=== PATIENT | female | born 1995 | race American Indian/Alaskan Native ===

== ENCOUNTER 2019-09-25 10:29 | Outpatient (CLI) | payer MEDICAID ==
[2019-09-25] MEDS ORDERED: BUTORPHANOL 2 MG/1 ML INJ IV PRN (12:00)
[2019-09-25 12:30] LABS: Hematocrit 24.6 % (30.3-42.9); Hemoglobin 7.6 gm/dl (10.1-14.3); Mean Corpuscular HGB Conc 31 % (30-34); Platelet Count 328 K/mm3 (140-440); Red Blood Count 3.82 M/mm3 (3.65-5.03); Red Cell Distribution Width 19.6 % (13.2-15.2)
[2019-09-25 12:35] VITALS: BP 138/87
[2019-09-25 12:35] LABS: Mean Corpuscular Volume 65 fl (79-97)
[2019-09-25 12:47] LABS: Uric Acid 5.6 mg/dL (3.5-7.6)
[2019-09-25 12:48] LABS: Alanine Aminotransferase < 5 units/L (7-56)
[2019-09-25] MEDS ORDERED: FLUCONAZOLE 100 MG TAB PO SCH (13:00)
--- NOTE | 2019-09-25 13:10 | Event Note ---
Date: 09/25/19 CHTN, noncompliant with care 36+6/7 weeks today complains of COVINGTON and insomnia had PIH w/up earlier this week Went to [facility] today, everything WNL but told to come to ED for COVINGTON, BV BP at baseline in OB triage plan for diflucan, IV stadol, PE/Labor/FM precautions reviewed patient AAOx3 at [facility], no focal neuro deficits and stable for discharge. EFM category 1 Dre Bob MD
== END 2019-09-25 14:08 | disposition home or self-care (01) ==
LOC: TRG 10:29 → APU 10:31 → TRG 14:08
PROVIDERS: ATTEND Obstetrics & Gynecology
DX: O10.913 Unspecified pre-existing hypertension complicating pregnancy, third trimester (principal); O99.343 Other mental disorders complicating pregnancy, third trimester; F32.9 Major depressive disorder, single episode, unspecified; O99.353 Diseases of the nervous system complicating pregnancy, third trimester; G47.00 Insomnia, unspecified; O99.323 Drug use complicating pregnancy, third trimester; F12.90 Cannabis use, unspecified, uncomplicated; Z87.891 Personal history of nicotine dependence; Z3A.36 36 weeks gestation of pregnancy
CPT/HCPCS: 36415; 59025; 82565; 83615; 84450; 84460; 84550; 85027; 96374; J0595

== ENCOUNTER 2019-10-03 14:56 | Inpatient (IN) | payer MEDICAID ==
[2019-10-03] MEDS ORDERED: FAMOTIDINE 20 MG/2 ML INJ IV ONE (15:43)
[2019-10-03] MEDS ORDERED: METOCLOPRAMIDE 10 MG/2 ML INJ IV ONE (15:43)
[2019-10-03] MEDS ORDERED: BICITRA ORAL LIQD 30ML PO ONE (15:43)
[2019-10-03] MEDS ORDERED: ceFAZolin/Water 2 GM/20 ML 2 GM/20 ML SYRINGE IV NR (16:00)
[2019-10-03] MEDS ORDERED: OXYTOCIN 20 UNIT/1000ML DRIP 20 UNITS/1,000 ML BAG IV SCH ×2 (16:00→19:00)
--- NOTE | 2019-10-03 16:01 | History and Physical Report ---
History of Present Illness Date of examination: 10/03/19 Date of admission: 10/03/19 14:56 History of present illness: 24 yo at 38 weeks today has a h/o prior C/S and CHTN. No HTN meds needed during the preg. PT sent from [facility] today due to elevated BPs in the office and recommended delivery today. Fetus also with a 2 BV cord. No preeclamptic sxs. Normal preeclamptic labs 7 days ago. Positive Marijuana on tox screen on 09/21. Pt also with PICA during the (corn starch) as well as tobacco use earlier in the preg. Past History Past Medical History: asthma, hypertension, other (HSV, Bipolar/depression, anemia) Past Surgical History: section Social history: smoking (and marijuana use) - Obstetrical History : 4 Para: 3 Hx # Term Pregnancies: 1 Number of Living Children: 1 Medications and Allergies Allergies Allergy/AdvReac Type Severity Reaction Status Date / Time Penicillins AdvReac Severe Vomiting Verified 09/26/19 17:47 Home Medications Medication Instructions Recorded Confirmed Last Taken Type Vit 90/Iron Fum/Folic 1 each PO QDAY 10/17/13 09/22/19 09/21/19 10:00 History [ Formula] 1 tab Promethazine [Phenergan] 25 mg PO Q6H PRN #12 tablet 10/17/13 09/22/19 Unknown Rx Active Meds: Active Medications Oxytocin/Sodium Chloride (Pitocin/Ns 20 Unit/1000ml Drip) 20 units in 1,000 mls @ 0 mls/hr IV TITR NAFISA Lactated Ringer's (Lactated Ringers) 1,000 mls @ 2,250 mls/hr IV PREOP NAFISA Stop: 10/04/19 16:27 Cefazolin Sodium (Ancef/Sterile Water 2 Gm/20 Ml) 2 gm in 20 mls @ 80 mls/hr IV PREOP NR; Protocol Stop: 10/03/19 23:59 Review of Systems All systems: negative (except HPI) - Vital Signs Vital signs: Vital Signs Pulse Pulse Ox 94 H 100 10/03/19 15:36 10/03/19 15:36 Temp Pulse Resp BP Pulse Ox 98 H 132/89 100 10/03/19 15:56 10/03/19 15:48 10/03/19 15:56 - Obstetrical FHR: category 1 Results All other labs normal. Assessment and Plan - Patient Problems (1) Chronic hypertension affecting Current Visit: Yes Status: Acute Plan to address problem: Pt is at 38 weeks with CHTN who was sent by [facility] for delivery today for CHTN, possibly superimposed preeclampsia. Will start MgSO4 and repeat CMP/CBC. Will proceed with RLTCS today. Patient fully consented for the surgery. Risks, benefits, and alternatives were all discussed with the patient including risk of bleeding, infection, and potential for injury. Patient understands and accepts these risks. Patient agrees to proceed with surgery. All questions were answered. (2) Previous delivery, antepartum Current Visit: Yes Status: Acute
[2019-10-03] MEDS ORDERED: DEXMEDETOMIDINE 200 MCG/2 ML VIAL IV ONE (16:03)
[2019-10-03] MEDS ORDERED: ONDANSETRON 4 MG/2 ML INJ ONE (16:03)
[2019-10-03] MEDS ORDERED: MAGNESIUM SULFATE 4 GM/100 ML BAG IV ONE (16:18)
--- NOTE | 2019-10-03 16:19 | Anesthesia Day of Surgery ---
Anesthesia Day of Surgery - Day of Surgery Patient Examined: Yes Patient H&P Reviewed: Yes Patient is NPO: Yes Beta Blockers: No (stop taken B/P meds ) Cardiac Clearance: No Pulmonary Clearance: No Pato's Test: N/A
--- NOTE | 2019-10-03 16:21 | Anesthesia Consultation ---
Anesthesia Consult and Med Hx Date of service: 10/03/19 - Airway Anesthetic Teeth Evaluation: Good, Poor ROM Head & Neck: Adequate Mental/Hyoid Distance: Adequate Mallampati Class: Class III Intubation Access Assessment: Probably Good - Pulmonary Exam CTA: Yes - Cardiac Exam Cardiac Exam: RRR - Pre-Operative Health Status ASA Pre-Surgery Classification: ASA3 Proposed Anesthetic Plan: Spinal - Pulmonary Hx Smoking: No Hx Asthma: Yes (INHALER 2 MTHS AGO) Hx Respiratory Symptoms: No SOB: No COPD: No Home Oxygen Therapy: No Hx Pneumonia: No Hx Sleep Apnea: No - Cardiovascular System Hx Hypertension: Yes Hx Coronary Artery Disease: No Hx Heart Attack/AMI: No Hx Angina: No Hx Percutaneous Transluminal Coronary Angioplasty (PTCA): No Hx Cardia Arrhythmia: No Hx Pacemaker: No Hx Internal Defibrillator: No Hx Valvular Heart Disease: No Hx Heart Murmur: No Hx Peripheral Vascular Disease: No - Central Nervous System Hx Neuromuscular Disorder: No Hx Seizures: No CVA: No Hx Back Pain: No Hx Psychiatric Problems: Yes (ANXIETY, PPSD, BIPOLAR DEPRESSION) - Gastrointestinal Hx Ulcer: No Hx Gastroesophageal Reflux Disease: Yes - Endocrine Hx Renal Disease: No Hx End Stage Renal Disease: No Hx Cirrhosis: No Hx Liver Disease: No Hx Insulin Dependent Diabetes: No Hx Non-Insulin Dependent Diabetes: No Hx Thyroid Disease: No Hx Hypothyroidism: No Hx Hyperthyroidism: No - Hematic Hx Anemia: No Hx Sickle Cell Disease: No - Other Systems Hx Alcohol Use: No Hx Substance Use: Yes (cannabis) Hx Cancer: No Hx Obesity: Yes
[2019-10-03 16:27] LABS: Basophils # (Auto) 0.1 K/mm3 (0.0-0.1); Basophils % (Auto) 0.4 % (0.0-1.8); Eosinophils # (Auto) 0.1 K/mm3 (0.0-0.4); Eosinophils % (Auto) 0.5 % (0.0-4.3); Hematocrit 25.6 % (30.3-42.9); Hemoglobin 7.6 gm/dl (10.1-14.3); Lymphocytes # (Auto) 3.6 K/mm3 (1.2-5.4); Lymphocytes % (Auto) 22.9 % (13.4-35.0); Mean Corpuscular HGB Conc 30 % (30-34); Monocytes # (Auto) 1.5 K/mm3 (0.0-0.8); Monocytes % (Auto) 9.5 % (0.0-7.3); Platelet Count 358 K/mm3 (140-440); Red Blood Count 4.04 M/mm3 (3.65-5.03); Red Cell Distribution Width 19.6 % (13.2-15.2)
[2019-10-03 16:28] LABS: Mean Corpuscular Volume 63 fl (79-97)
[2019-10-03] MEDS: LACTATED RINGERS 1,000 ML IV SCH (16:37)
[2019-10-03 16:52] LABS: Alanine Aminotransferase 7 units/L (7-56); Albumin 3.6 g/dL (3.9-5); BUN/Creatinine Ratio 7; Blood Urea Nitrogen 5 mg/dL (7-17); Calcium 9.2 mg/dL (8.4-10.2); Hemolysis Index 1
[2019-10-03] MEDS ORDERED: NALOXONE 0.4 MG/1 ML INJ IV PRN ×2 (17:05→18:54)
[2019-10-03] MEDS ORDERED: ONDANSETRON 4 MG/2 ML INJ IV PRN ×2 (17:05→18:57)
[2019-10-03] MEDS ORDERED: PHENYLEPHRINE/NS 1,000 MCG/10 ML SYRINGE (OR USE) IV ONE (18:03)
[2019-10-03] MEDS ORDERED: SODIUM CHLORIDE 0.9% IRR 1,500 ML BOTTLE IR ONE (18:05)
[2019-10-03] MEDS ORDERED: WATER FOR IRRIG STERILE 1,500 ML BOTTLE IR ONE (18:05)
[2019-10-03] MEDS ORDERED: WITCH HAZEL/ GLYCERIN PAD TP PRN (18:54)
[2019-10-03] MEDS ORDERED: LANOLIN/ZINC/DIMETHICONE (LANSINOH) 7 GM TP PRN (18:54)
[2019-10-03] MEDS ORDERED: SENNOSIDES 8.6 MG TAB PO PRN (18:57)
[2019-10-03] MEDS ORDERED: MAGNESIUM HYDROXIDE (MOM) ORAL LIQD UDC PO PRN (18:57)
--- NOTE | 2019-10-03 19:03 | Procedure Note ---
OB Delivery Note - Delivery Date of Delivery: 10/03/19 Surgeon: PIERCE ROMERO Estimated blood loss: other (700cc) - Section Preop diagnosis: repeat , other (CHTN, possible superimposed preeclampsia) Postop diagnosis: same section procedure: section, repeat low transverse Disposition: PACU Complications: none Narrative: Indication: 24 yo at 38 weeks for RLTCS for CHTN, possible superimposed preeclampsia Findings: Normal uterus, tubes and ovaries. Clear fluid. No nuchal cord. No significant intra-abdominal scarring. Procedure: Patient taken to the operating room and prepped and draped in the usual fashion. Pfannenstiel skin incision made after her old keloid scar was excised and incision was and carried down to the underlying fascia. Fascia was incised and the incision was extended bilaterally. Rectus fascia dissected off the rectus muscle both superiorly and inferiorly. Peritoneum identified tented up and entered. Peritoneal incision extended superiorly and inferiorly with good visualization of the bladder. Bladder blade was placed. Uterine incision was made and the incision was extended bilaterally. The baby was delivered from in the typical vertex fashion. Baby bulb suctioned at the incision site and again after delivery. Cord was delayed clamped and cut and handed off to waiting team. The placenta was delivered spontaneously. The uterus was exteriorized and cleared of all clots and debris. Uterine incision closed with 0 Vicryl in a running locked fashion followed by a second imbricating layer of 0 Vicryl. Good hemostasis was noted. Her urine was clear. Uterus tubes and ovaries return to the abdominal cavity. Gutters were cleared of all clots and debris and the pelvis was well irrigated. Good hemostasis noted. Interceed placed over the uterine incision and over the lower uterine segment in the midline. Attention was turned to the rectus fascia which was reapproximated with 0 Vicryl in a running fashion. Subcutaneous tissues was irrigated and reapproximated with 2-0 Vicryl in a running fashion. Skin was closed with 4-0 Vicryl in a subcuticular fashion followed by Dermabond. The procedure was concluded at this point and the patient tolerated the procedure well. All instrument and lap counts were correct. - Infant A at 1 minute: 8 at 5 minutes: 9 Infant Gender: Male
--- NOTE | 2019-10-03 19:12 | Post Anesthesia Evaluation ---
- Post Anesthesia Evaluation Patient Participated: Yes Airway Patent: Yes Stable Respiratory Function: Yes Nausea/Vomiting: No Temp > 96.8F: Yes Pain Manageable: Yes Adequeate Hydration: Yes Anesthesia Complications: No Block Receding Appropriately: Yes Patient on Ventilator: No
[2019-10-03] MEDS: MAGNESIUM SULFATE 40GM/1000ML 40 GM/1,000 ML BAG IV SCH (19:30)
[2019-10-03] MEDS: HYDROmorphone 1 MG/1 ML INJ IV PRN ×2 (20:00→21:59)
[2019-10-03] MEDS: KETOROLAC 30 MG/1 ML INJ IV PRN (23:02)
[2019-10-03] MEDS: oxyCODONE /ACETAMINOPHEN 5-325MG TAB PO PRN (23:08)
[2019-10-04] MEDS: KETOROLAC 30 MG/1 ML INJ IV PRN ×3 (04:53→18:59)
[2019-10-04] MEDS: oxyCODONE /ACETAMINOPHEN 5-325MG TAB PO PRN ×3 (04:53→19:39)
[2019-10-04 06:18] LABS: Hematocrit 20.6 % (30.3-42.9); Hemoglobin 6.2 gm/dl (10.1-14.3)
[2019-10-04] MEDS: LACTATED RINGERS 1,000 ML IV SCH (08:24)
[2019-10-04] MEDS ORDERED: SODIUM CHLORIDE 0.9% 500 ML 500 ML IV NR (10:23)
--- NOTE | 2019-10-04 11:07 | Progress Note ---
Assessment and Plan A: /postop day 1 S/P repeat section. Chronic hypertension with superimposed preeclampsia. Severe anemia. P: PRBCs ordered; pt. declined blood at this time. Supplement with iron. Advance diet when patient is passing gas. Continue magnesium sulfate. Subjective - Subjective Date of service: 10/04/19 Principal diagnosis: /postop day 1; chronic HTN with superimposed PreE Interval history: Not passing gas yet. Tolerating a liquid diet without nausea or vomiting. Pt. denies headache, visual disturbance, chest pain, cough, shortness of breath, leg pain, or heavy bleeding. SCDs in place. Patient reports: appetite normal, pain well controlled, no flatus, no nauseated : doing well Objective - Vital Signs Latest vital signs: Vital Signs Temp Pulse Resp BP Pulse Ox 10/04/19 11:05 109 H 99 10/04/19 11:04 99.2 F 20 10/04/19 11:00 107 H 100 10/04/19 10:55 102 H 99 10/04/19 10:50 102 H 100 10/04/19 10:46 105 H 149/73 10/04/19 10:45 109 H 98 10/04/19 10:40 106 H 99 10/04/19 10:35 109 H 99 10/04/19 10:30 109 H 99 10/04/19 10:25 107 H 99 10/04/19 10:20 113 H 99 10/04/19 10:16 109 H 131/76 10/04/19 10:15 106 H 99 10/04/19 10:10 109 H 99 10/04/19 10:05 116 H 99 10/04/19 10:00 108 H 98 10/04/19 09:55 118 H 99 10/04/19 09:50 112 H 98 10/04/19 09:46 114 H 119/74 10/04/19 09:45 113 H 97 10/04/19 09:40 114 H 99 10/04/19 09:35 110 H 99 10/04/19 09:30 112 H 99 10/04/19 09:25 109 H 99 10/04/19 09:20 106 H 99 10/04/19 09:16 100 H 128/73 10/04/19 09:15 102 H 100 10/04/19 09:10 106 H 100 10/04/19 09:05 108 H 99 05 09:00 110 H 99 05 08:55 111 H 98 05 08:50 107 H 99 10/04/19 08:45 102 H 100 05 08:40 102 H 100 10/04/19 08:35 108 H 99 05 08:30 110 H 141/95 100 05 08:25 111 H 99 05 08:20 108 H 100 05 08:15 116 H 99 05 08:10 102 H 100 10/04/19 08:05 105 H 99 10/04/19 08:00 98.2 F 95 H 129/88 100 10/04/19 07:55 100 H 99 10/04/19 07:50 102 H 100 10/04/19 07:45 102 H 99 10/04/19 07:40 96 H 99 10/04/19 07:35 94 H 98 10/04/19 07:30 94 H 123/81 99 10/04/19 07:25 98 H 97 10/04/19 07:20 96 H 98 10/04/19 07:15 102 H 99 10/04/19 07:10 98 H 100 10/04/19 07:05 104 H 99 10/04/19 07:00 95 H 133/89 100 10/04/19 06:55 102 H 99 10/04/19 06:50 98 H 99 10/04/19 06:45 109 H 99 10/04/19 06:40 101 H 100 10/04/19 06:35 104 H 99 05 06:31 102 H 136/71 05 06:30 103 H 99 05 06:25 101 H 99 0520 06:20 103 H 99 05 06:15 106 H 100 05 06:10 107 H 99 05 06:05 118 H 99 05 06:01 103 H 118/70 05 06:00 106 H 99 05 05:55 103 H 98 05 05:50 97 H 98 05 05:45 103 H 98 05 05:40 115 H 96 05/23/20 05:35 97 H 99 05//20 05:30 96 H 121/78 99 05//20 05:25 98 H 99 05//20 05:20 104 H 99 05/20 05:15 102 H 99 05//20 05:10 104 H 99 0520 05:05 100 H 99 05/20 05:00 101 H 126/79 99 0520 04:55 113 H 98 0520 04:50 102 H 98 0520 04:45 101 H 98 0520 04:40 115 H 98 05//20 04:35 102 H 98 0520 04:30 105 H 116/78 98 0520 04:25 105 H 98 0520 04:20 108 H 98 0520 04:15 104 H 98 0520 04:10 104 H 98 05 04:05 103 H 98 0520 04:00 108 H 115/69 98 0520 03:55 102 H 98 0520 03:50 108 H 98 05//20 03:45 108 H 98 0523/20 03:40 113 H 99 0520 03:35 108 H 98 0520 03:30 107 H 125/74 98 0523/20 03:25 107 H 99 0520 03:20 103 H 99 05/20 03:15 116 H 98 0520 03:10 107 H 97 0520 03:05 108 H 97 0520 03:00 112 H 121/64 98 05/23/20 02:55 106 H 97 05/23/20 02:50 115 H 97 05/23/20 02:45 105 H 97 05/20 02:40 107 H 97 0520 02:35 107 H 97 0520 02:30 110 H 123/76 97 0523/20 02:25 108 H 99 05//20 02:20 112 H 99 05//20 02:15 119 H 99 05/20 02:11 155 H 91 0520 02:10 99 H 78 L 05 02:05 51 L 77 L 10/04/19 02:00 112 H 127/80 100 10/04/19 01:55 120 H 100 10/04/19 01:50 113 H 99 10/04/19 01:45 112 H 99 10/04/19 01:40 110 H 99 10/04/19 01:35 120 H 100 10/04/19 01:30 113 H 139/86 100 10/04/19 01:25 121 H 100 10/04/19 01:20 114 H 100 10/04/19 01:15 104 H 100 10/04/19 01:10 111 H 100 10/04/19 01:05 112 H 100 10/04/19 01:01 122 H 131/83 10/04/19 01:00 114 H 100 10/04/19 00:55 98 H 100 10/04/19 00:50 108 H 100 10/04/19 00:45 102 H 100 10/04/19 00:40 103 H 100 10/04/19 00:35 99 H 100 10/04/19 00:30 101 H 131/88 100 10/04/19 00:25 98 H 100 10/04/19 00:20 102 H 100 10/04/19 00:15 97 H 98 10/04/19 00:10 96 H 100 10/04/19 00:05 97 H 100 10/04/19 00:00 102 H 159/93 100 10/03/19 23:55 97 H 99 10/03/19 23:50 106 H 100 05 23:45 100 H 100 05 23:40 92 H 100 10/03/19 23:35 99 H 100 05 23:30 95 H 142/83 100 05 23:25 89 100 05 23:20 107 H 100 05 23:15 87 100 05 23:10 101 H 100 10/03/19 23:08 16 10/03/19 23:05 103 H 100 10/03/19 23:02 16 10/03/19 23:00 93 H 100 05 22:55 90 100 05 22:50 82 100 05 22:45 83 99 05 22:40 86 100 05/22/20 22:35 85 100 05/22/20 22:30 83 130/75 100 05/22/20 22:29 16 05/20 22:25 83 100 05/22/20 22:20 83 100 05//20 22:15 85 100 05/22/20 22:10 80 100 05/22/20 22:05 98 H 100 05/22/20 22:00 85 125/83 100 05//20 21:59 16 0520 21:55 91 H 100 05/22/20 21:50 84 100 05/22/20 21:45 81 100 05//20 21:40 85 100 05//20 21:35 84 100 05//20 21:31 85 138/85 05/20 21:30 85 100 05//20 21:25 82 100 05//20 21:24 88 87 05//20 21:20 83 100 0520 21:15 72 100 0520 21:10 77 100 0520 21:05 72 100 0520 21:01 73 141/93 0520 21:00 77 100 05/22/20 20:55 70 99 05//20 20:50 74 100 05/20 20:45 80 100 05/20 20:40 80 100 05//20 20:35 80 100 05/22/20 20:30 84 100 05//20 20:05 98.2 F 68 14 125/84 100 05/20 20:00 98.2 F 84 16 132/84 100 05/20 19:45 98.1 F 76 16 124/85 100 05/22/20 19:30 98.1 F 76 16 116/63 100 05/22/20 19:21 98.2 F 69 16 107/21 100 05/22/20 19:15 98.1 F 85 16 108/61 100 05/22/20 19:10 97.9 F 78 16 100 0522/20 17:11 98 H 99 0520 17:06 96 H 100 05/22/20 17:01 99 H 100 0520 17:00 93 H 133/84 0520 16:56 96 H 100 05/20 16:51 105 H 100 10/03/19 16:46 96 H 100 10/03/19 16:45 99 H 134/84 10/03/19 16:41 102 H 100 10/03/19 16:36 105 H 100 10/03/19 16:31 101 H 100 10/03/19 16:30 98 H 132/90 10/03/19 16:26 89 100 10/03/19 16:21 107 H 100 10/03/19 16:18 92 H 143/96 10/03/19 16:16 111 H 100 10/03/19 16:11 96 H 100 10/03/19 16:06 101 H 100 10/03/19 16:01 91 H 100 10/03/19 16:00 101 H 118/74 10/03/19 15:56 98 H 100 10/03/19 15:51 102 H 100 10/03/19 15:48 95 H 132/89 10/03/19 15:46 103 H 100 10/03/19 15:41 91 H 100 10/03/19 15:38 84 131/80 10/03/19 15:36 94 H 100 Intake and Output 10/03/19 10/04/19 10/04/19 23:59 07:59 15:59 Intake Total 2300 Output Total 490 850 700 Balance 1810 -850 -700 Intake: IV 2300 Lactated Ringers 1,000 ml 1000 @ 2250 mls/hr IV PREOP FOR[facility]LY [facility], 1928–1983 Rx#:[id number] Output: Urine 490 850 700 Indwelling Catheter 150 850 700 Uretheral (Sim) 90 Other: Total, Output Amount 150 200 300 Weight 92.533 kg Estimated Blood Loss 700 - Exam Cardiovascular: Present: Regular rate, Normal S1, Normal S2 Lungs: Present: Clear to auscultation Abdomen: Present: normal appearance, soft, normal bowel sounds. Absent: distention, tenderness, guarding, rigidity Uterus: Present: normal, firm, fundal height below umbilicus. Absent: bogginess, tenderness Extremities: Present: normal. Absent: tenderness Incision: Present: normal, dry, dressed - Labs Labs: Abnormal lab results 10/03/19 10/03/19 10/03/19 Range/Units 16:00 16:00 16:00 WBC 15.6 H (4.5-11.0) K/mm3 Hgb 7.6 L (10.1-14.3) gm/dl Hct 25.6 L (30.3-42.9) % MCV 63 L (79-97) fl MCH 19 L (28-32) pg RDW 19.6 H (13.2-15.2) % Vance % (Auto) 9.5 H (0.0-7.3) % Vance # 1.5 H (0.0-0.8) K/mm3 Seg Neutrophils # 10.4 H (1.8-7.7) K/mm3 Carbon Dioxide 20 L (22-30) mmol/L BUN 5 L (7-17) mg/dL Magnesium (1.7-2.3) mg/dL Albumin 3.6 L (3.9-5) g/dL Crossmatch See Detail 10/04/19 10/04/19 10/04/19 Range/Units 00:17 06:07 06:07 WBC (4.5-11.0) K/mm3 Hgb 6.2 L (10.1-14.3) gm/dl Hct 20.6 L (30.3-42.9) % MCV (79-97) fl MCH (28-32) pg RDW (13.2-15.2) % Vance % (Auto) (0.0-7.3) % Vance # (0.0-0.8) K/mm3 Seg Neutrophils # (1.8-7.7) K/mm3 Carbon Dioxide (22-30) mmol/L BUN (7-17) mg/dL Magnesium 4.80 H 6.10 H (1.7-2.3) mg/dL Albumin (3.9-5) g/dL Crossmatch
[2019-10-04] MEDS: FERROUS SULFATE 325 MG TAB PO SCH (11:34)
[2019-10-04] MEDS: MAGNESIUM SULFATE 40GM/1000ML 40 GM/1,000 ML BAG IV SCH (14:43)
[2019-10-05] MEDS: IBUPROFEN 800 MG TAB PO PRN ×4 (00:10→17:29)
[2019-10-05] MEDS: oxyCODONE /ACETAMINOPHEN 5-325MG TAB PO PRN ×4 (01:31→22:35)
[2019-10-05] MEDS: FERROUS SULFATE 325 MG TAB PO SCH ×2 (10:49→21:12)
[2019-10-05] MEDS: SIMETHICONE 80 MG CHEW TAB PO PRN (17:32)
--- NOTE | 2019-10-05 19:41 | Progress Note ---
Assessment and Plan A: /postop day 2 S/P repeat LTCS. Chronic hypertension with superimposed preeclampsia. Anemia. P: Supplement with oral iron. Encouraged ambulation. Anticipate discharge in 48 hours. Subjective - Subjective Date of service: 10/05/19 Principal diagnosis: /postop day 2; chronic HTN with superimposed PreE Interval history: day 2 S/P repeat LTCS. Chronic hypertension with superimposed preeclampsia. Passing gas, tolerating a regular diet, voiding without difficulty. Patient reports: appetite normal, voiding normally, pain well controlled, flatus, ambulating normally, no dizzy ambulation, no nauseated : doing well Objective - Vital Signs Latest vital signs: Vital Signs Temp Pulse Resp BP BP Pulse Ox 10/05/19 17:40 97.7 F 18 122/71 10/05/19 12:59 97.7 F 97 H 18 135/80 96 10/05/19 09:02 97.5 F L 104 H 18 131/82 94 10/05/19 06:20 114 H 119/74 97 10/05/19 01:51 97.8 F 113 H 22 125/76 97 10/05/19 01:50 98 F 10/04/19 22:00 97.6 F 98 H 16 116/70 100 10/04/19 20:46 91 H 83 L 10/04/19 20:44 65 73 L 10/04/19 20:40 105 H 99 20 20:35 103 H 99 20 20:30 104 H 99 20 20:29 102 H 125/72 20 20:25 108 H 97 10/04/19 20:20 111 H 98 20 20:15 104 H 99 10/03/20 20:14 106 H 121/74 20 20:10 105 H 99 10/03/20 20:05 94 H 99 20 20:00 105 H 98 20 19:59 96 H 118/70 20 19:55 96 H 100 20 19:50 101 H 99 10/04/19 19:45 101 H 100 20 19:44 95 H 124/76 10/04/19 19:40 98 H 98 Intake and Output 10/05/19 10/05/19 10/05/19 07:59 15:59 23:59 Intake Total 360 Output Total 400 Balance -40 Intake: Intake, Free Water 360 Output: Urine 400 Void 400 Other: Total, Output Amount 400 # Voids Void 1 1 - Exam Cardiovascular: Present: Regular rate, Normal S1, Normal S2, No murmurs Lungs: Present: Clear to auscultation Abdomen: Present: normal appearance, soft, normal bowel sounds. Absent: dis tention, tenderness, guarding, rigidity Uterus: Present: normal, firm, fundal height below umbilicus. Absent: bogginess, tenderness Extremities: Present: normal. Absent: tenderness, edema Incision: Present: normal, dry, intact
[2019-10-06] MEDS: IBUPROFEN 800 MG TAB PO PRN ×3 (02:27→17:34)
[2019-10-06] MEDS: oxyCODONE /ACETAMINOPHEN 5-325MG TAB PO PRN ×3 (06:21→23:06)
[2019-10-06] MEDS ORDERED: IRON DEXTRAN COMPLEX 100 MG/2 ML INJ IM ONE (10:00)
[2019-10-06] MEDS: FERROUS SULFATE 325 MG TAB PO SCH ×3 (10:00→21:22)
--- NOTE | 2019-10-06 14:16 | Progress Note ---
Assessment and Plan - Patient Problems (1) S/P repeat low transverse Current Visit: Yes Status: Acute Plan to address problem: POD 3 - unstable with symptomatic anemia Ambulation with assistance encouraged Abdominal binder ordered Anticipate discharge in 24 hours (2) Single live Current Visit: Yes Status: Acute (3) Severe anemia Current Visit: Yes Status: Acute Plan to address problem: Symptomatic: pt is tachycardic and reports occasional dizziness with ambulation Blood transfusion was ordered but was informed by TACO Nuñez that patient declined Infed 100mg IM x1 given Continue ferrous sulfate 325mg PO BID Repeat H&H on 10/07/19 (4) Chronic hypertension with superimposed pre-eclampsia Current Visit: Yes Status: Acute Plan to address problem: s/p magnesium sulfate therapy BPs have been stable but last BP was 136/95. Will continue to monitor BPs and start antihypertensive therapy if indicated Subjective - Subjective Date of service: 10/06/19 Principal diagnosis: POD #3; s/p Repeat LTCS; CHTN w/Superimposed Pre-eclampsia; Severe Anemia Interval history: see [employer] - H&P, OB delivery Procedure Note and PP/RECORDS SPECIALIST Progress Notes Patient reports: appetite normal, voiding normally, dizzy ambulation (occasionally), pain well controlled, flatus, bowel movement, ambulating normally, other (denies headache, RUQ pain, or SOB ), no nauseated [place]: doing well Objective - Vital Signs Latest vital signs: Vital Signs Temp Pulse Resp BP BP Pulse Ox 10/06/19 08:18 96.6 F L 122 H 17 136/95 97 10/06/19 06:21 18 10/06/19 03:27 18 10/06/19 02:27 18 10/05/19 23:35 18 10/05/19 23:11 96.4 F L 111 H 18 124/76 10/05/19 22:35 18 10/05/19 20:38 97.8 F 118 H 18 127/75 91 10/05/19 17:40 97.7 F 18 122/71 Intake and Output 10/05/19 10/06/19 10/06/19 23:59 07:59 15:59 Intake Total 240 400 Balance 240 400 Intake: Oral 400 Intake, Free Water 240 Other: Total, Intake Amount 200 Voiding Method Toilet # Voids 1 Void 1 1 - Exam Cardiovascular: Present: Regular rate Lungs: Present: Clear to auscultation Abdomen: Present: normal appearance, soft Vulva: both: normal Uterus: Present: normal, firm, fundal height below umbilicus Extremities: Present: normal Incision: Present: normal, dry, intact Comments: scant lochia - Labs Labs: Abnormal lab results 10/03/19 Range/Units 16:00 Crossmatch See Detail
[2019-10-06] MEDS: SIMETHICONE 80 MG CHEW TAB PO PRN (17:35)
[2019-10-07] MEDS: IBUPROFEN 800 MG TAB PO PRN ×2 (05:03→14:20)
[2019-10-07 06:24] LABS: Hematocrit 18.5 % (30.3-42.9); Hemoglobin 5.5 gm/dl (10.1-14.3)
[2019-10-07] MEDS ORDERED: diphenhydrAMINE 50 MG/ML VIAL IV ONE (06:44)
[2019-10-07] MEDS ORDERED: ACETAMINOPHEN 325 MG TAB PO ONE (06:44)
[2019-10-07] MEDS ORDERED: SODIUM CHLORIDE 0.9% 500 ML 500 ML IV ONE (06:44)
[2019-10-07] MEDS: oxyCODONE /ACETAMINOPHEN 5-325MG TAB PO PRN ×2 (08:21→19:30)
[2019-10-07] MEDS: FERROUS SULFATE 325 MG TAB PO SCH (08:21)
--- NOTE | 2019-10-07 09:30 | Progress Note ---
Assessment and Plan - Patient Problems (1) S/P repeat low transverse Current Visit: Yes Status: Acute Plan to address problem: Continue routine PP orders Keep incision clean and dry Anticipate d/c home after repeat H/H following 2 units PRBCs (2) Severe anemia Current Visit: Yes Status: Acute Plan to address problem: Infuse 2 units of PRBCs per protocol Repeat H/H 4 hrs post-infusion (3) Chronic hypertension with superimposed pre-eclampsia Current Visit: Yes Status: Acute Plan to address problem: Continue to monitor B/Ps closely Subjective - Subjective Date of service: 10/07/19 Principal diagnosis: POD #4; s/p Repeat LTCS; CHTN w/Superimposed Pre-eclampsia; Severe Anemia Interval history: See admission H &P; OB operative summary and PP progress notes Patient reports: appetite normal, voiding normally, pain well controlled (with medications), flatus, ambulating normally, no bowel movement : doing well () Objective - Vital Signs Latest vital signs: Vital Signs Temp Pulse Resp BP BP Pulse Ox 10/07/19 07:53 96.3 F L 16 135/85 10/07/19 06:03 18 10/07/19 05:35 98.3 F 103 H 18 136/84 98 10/07/19 05:34 98.3 F 18 136/84 10/07/19 05:03 18 10/07/19 01:19 98.7 F 18 137/91 10/07/19 00:06 18 10/06/19 23:06 18 10/06/19 20:25 98.0 F 108 H 18 139/87 97 10/06/19 16:01 98.3 F 114 H 14 131/92 100 Intake and Output 10/06/19 10/07/19 10/07/19 23:59 07:59 15:59 Intake Total 400 Balance 400 Intake: Oral 400 Other: Total, Intake Amount 200 Voiding Method Toilet # Voids 1 Void 1 1 - Exam Breasts: Present: normal Cardiovascular: Present: Regular rate Lungs: Present: Normal air movement Abdomen: Present: soft, tenderness Uterus: Present: firm, fundal height below umbilicus (U-1) Extremities: Present: normal Deep Tendon Reflex Grade: Normal +2 Incision: Present: dry, intact (no drainage or bleeding noted) - Labs Labs: Abnormal lab results 10/03/19 10/07/19 10/07/19 Range/Units 16:00 05:51 07:08 Hgb 5.5 L* (10.1-14.3) gm/dl Hct 18.5 L* (30.3-42.9) % Crossmatch See Detail See Detail
[2019-10-07] MEDS ORDERED: SODIUM CHLORIDE 0.9% 500 ML 500 ML ONE (09:50)
[2019-10-07 19:50] LABS: Hematocrit 26.1 % (30.3-42.9); Hemoglobin 8.4 gm/dl (10.1-14.3)
[2019-10-07 20:36] VITALS: BP 127/69
--- NOTE | 2019-10-09 09:08 | Discharge Summary ---
Providers - Providers Date of Admission: 10/03/19 14:56 Date of discharge: 10/07/19 Attending physician: PIERCE ROMERO Primary care physician: CARDIAC CATH RN Hospitalization Reason for admission: section, IUP at term Delivery: Procedure: repeat low transverse Episiotomy: none Laceration: none Incision: dry, intact (no drainage or bleeding noted, glue intact) Other procedures: none complications: transfusion (secondary to severe anemia) Discharge diagnosis: IUP at term delivered, other (anemia) [place] baby: male Hospital course: See admission H&P; OB operative summary and PP progress notes Condition at discharge: Stable Disposition: DC- TO HOME OR SELFCARE - Discharge Diagnoses (1) S/P repeat low transverse Status: Acute (2) Severe anemia Status: Acute (3) Chronic hypertension with superimposed pre-eclampsia Status: Acute Plan - Discharge Medications Prescriptions: Ibuprofen [Motrin 800 MG tab] 800 mg PO Q8HR PRN #30 tablet PRN Reason: Pain , Severe (7-10) oxyCODONE /ACETAMINOPHEN [Percocet 5/325] 1 tab PO Q4HR PRN #30 tab PRN Reason: Pain , Severe (7-10) - Provider Discharge Summary Activity: routine, no sex for 6 weeks, no heavy lifting 4 weeks, no strenuous exercise Diet: other (Iron rich diet) Instructions: routine Additional instructions: [] Smoking cessation referral if applicable(refer to patient education folder for contact #) [] Refer to [facility]'s [facility] Booklet Call your doctor immediately for: * Fever > 100.5 * Heavy vaginal bleeding ( >1 pad per hour) * Severe persistent headache * Shortness of breath * Reddened, hot, painful area to leg or breast * Drainage or odor from incision. * Keep incision clean and dry at all times and follow doctor's instructions regarding bathing/showering - Follow up plan Follow up: PRIMARY CARE, [Primary Care Provider] - 7 Days Forms: [facility] Discharge Summary
== END 2019-10-07 21:24 | disposition home or self-care (01) | DRG 765 ==
LOC: LD 14:56 → OB 10-04 21:30
PROVIDERS: ADMIT Obstetrics & Gynecology; ATTEND Obstetrics & Gynecology
PROC: 10D00Z1 Extraction of Products of Conception, Low, Open Approach (ICD-10-PCS; principal; 2019-10-07)
PROC: 30233N1 Transfusion of Nonautologous Red Blood Cells into Peripheral Vein, Percutaneous Approach (ICD-10-PCS; 2019-10-07)
DX: O11.4 Pre-existing hypertension with pre-eclampsia, complicating childbirth (principal); D62 Acute posthemorrhagic anemia; O99.62 Diseases of the digestive system complicating childbirth; Z37.0 Single live birth; Z88.0 Allergy status to penicillin; J45.909 Unspecified asthma, uncomplicated; O34.219 Maternal care for unspecified type scar from previous cesarean delivery; F32.9 Major depressive disorder, single episode, unspecified; Z3A.38 38 weeks gestation of pregnancy; O99.344 Other mental disorders complicating childbirth; O99.52 Diseases of the respiratory system complicating childbirth; O99.214 Obesity complicating childbirth; E66.9 Obesity, unspecified; K21.9 Gastro-esophageal reflux disease without esophagitis; O90.81 Anemia of the puerperium; D64.9 Anemia, unspecified; O10.02 Pre-existing essential hypertension complicating childbirth
CPT/HCPCS: 36415; 59025; 76815; 76819; 80053; 83735; 85014; 85018; 85025; 86850; 86900; 86901; 86920; 96360; G0378; C1765; J0690; J1170; J1750; J1885; J2370; J2405; J2590; J2765; J3475; J3490; J7040; J7120; P9016; Q0177

== ENCOUNTER 2020-05-25 14:49 | Emergency (ER) | payer MEDICAID ==
[2020-05-25 15:08] VITALS: BP 140/94
--- NOTE | 2020-05-25 17:27 | Emergency Department Report ---
ED ENT HPI - General Chief complaint: Sore Throat Stated complaint: SORE THRAOT Time Seen by Provider: 05/25/20 17:20 Source: patient Mode of arrival: Ambulatory Limitations: No Limitations - History of Present Illness Initial comments: 25-year-old -[place] female presents to the emergency room stating that she has been having intermittent sore throat since February. Patient states that she was seen at the urgent care 3 times and was prescribed Bactrim next day doxycycline and then Bactrim. Patient had clindamycin in March. Patient still reports intermittent sore throat. She was referred to wearing apparel shaker but no one was accepting her insurance. Patient denies any fever chills no nausea no vomiting no chest pain no runny nose no nasal congestion. complaint: sore throat Onset/Timin -: days(s) Consistency: intermittent Improves with: none Worsens with: none - Related Data Home Medications Medication Instructions Recorded Confirmed Last Taken Vit 90/Iron Fum/Folic 1 each PO QDAY 10/17/13 09/22/19 09/21/19 10:00 [ Formula] 1 tab Previous Rx's Medication Instructions Recorded Last Taken Type Promethazine [Phenergan] 25 mg PO Q6H PRN #12 tablet 10/17/13 Unknown Rx Ibuprofen [Motrin 800 MG tab] 800 mg PO Q8HR PRN #30 tablet 10/03/19 Unknown Rx oxyCODONE /ACETAMINOPHEN [Percocet 1 tab PO Q4HR PRN #30 tab 10/03/19 Unknown Rx 5/325] Cyclobenzaprine [Flexeril] 10 mg PO TID PRN #30 tablet 12/10/19 Unknown Rx Ketorolac [Toradol] 10 mg PO Q6H PRN #10 tablet 12/10/19 Unknown Rx Cetirizine HCl [Zyrtec 10mg tab] 10 mg PO QDAY #15 tablet 05/25/20 Unknown Rx predniSONE [Deltasone] 20 mg PO QDAY #5 tablet 05/25/20 Unknown Rx Allergies Allergy/AdvReac Type Severity Reaction Status Date / Time Penicillins AdvReac Severe Vomiting Verified 09/26/19 17:47 ED Dental HPI - General Chief complaint: Sore Throat Stated complaint: SORE THRAOT Time Seen by Provider: 05/25/20 17:20 Source: patient Mode of arrival: Ambulatory Limitations: No Limitations - Related Data Home Medications Medication Instructions Recorded Confirmed Last Taken Vit 90/Iron Fum/Folic 1 each PO QDAY 10/17/13 09/22/19 09/21/19 10:00 [ Formula] 1 tab Previous Rx's Medication Instructions Recorded Last Taken Type Promethazine [Phenergan] 25 mg PO Q6H PRN #12 tablet 10/17/13 Unknown Rx Ibuprofen [Motrin 800 MG tab] 800 mg PO Q8HR PRN #30 tablet 10/03/19 Unknown Rx oxyCODONE /ACETAMINOPHEN [Percocet 1 tab PO Q4HR PRN #30 tab 10/03/19 Unknown Rx 5/325] Cyclobenzaprine [Flexeril] 10 mg PO TID PRN #30 tablet 12/10/19 Unknown Rx Ketorolac [Toradol] 10 mg PO Q6H PRN #10 tablet 12/10/19 Unknown Rx Cetirizine HCl [Zyrtec 10mg tab] 10 mg PO QDAY #15 tablet 05/25/20 Unknown Rx predniSONE [Deltasone] 20 mg PO QDAY #5 tablet 05/25/20 Unknown Rx Allergies Allergy/AdvReac Type Severity Reaction Status Date / Time Penicillins AdvReac Severe Vomiting Verified 09/26/19 17:47 ED Review of Systems ROS: Stated complaint: SORE THRAOT Other details as noted in HPI Comment: All other systems reviewed and negative ED Past Medical Hx - Past Medical History Hx Hypertension: Yes Hx Heart Attack/AMI: No Hx Congestive Heart Failure: No Hx Diabetes: No Hx Deep Vein Thrombosis: No Hx Liver Disease: No Hx Renal Disease: No Hx Sickle Cell Disease: No Hx Seizures: No Hx Asthma: Yes (INHALER 2 MTHS AGO) Hx COPD: No Hx HIV: No Additional medical history: Anemia - Surgical History Hx Pacemaker: No Hx Internal Defibrillator: No Additional Surgical History: C SECTION x2 - Social History Smoking Status: Current Every Day Smoker Substance Use Type: Alcohol - Medications Home Medications: Home Medications Medication Instructions Recorded Confirmed Last Taken Type Vit 90/Iron Fum/Folic 1 each PO QDAY 10/17/13 09/22/19 09/21/19 10:00 History [ Formula] 1 tab Promethazine [Phenergan] 25 mg PO Q6H PRN #12 tablet 10/17/13 09/22/19 Unknown Rx Ibuprofen [Motrin 800 MG tab] 800 mg PO Q8HR PRN #30 tablet 10/03/19 Unknown Rx oxyCODONE /ACETAMINOPHEN [Percocet 1 tab PO Q4HR PRN #30 tab 10/03/19 Unknown Rx 5/325] Cyclobenzaprine [Flexeril] 10 mg PO TID PRN #30 tablet 12/10/19 Unknown Rx Ketorolac [Toradol] 10 mg PO Q6H PRN #10 tablet 12/10/19 Unknown Rx Cetirizine HCl [Zyrtec 10mg tab] 10 mg PO QDAY #15 tablet 05/25/20 Unknown Rx predniSONE [Deltasone] 20 mg PO QDAY #5 tablet 05/25/20 Unknown Rx ED Physical Exam - General Limitations: No Limitations General appearance: alert, in no apparent distress - Head Head exam: Present: atraumatic, normocephalic - Eye Eye exam: Present: normal appearance - ENT ENT exam: Present: mucous membranes moist - Neck Neck exam: Present: normal inspection - Respiratory Respiratory exam: Present: normal lung sounds bilaterally. Absent: respiratory distress - Neurological Exam Neurological exam: Present: alert, oriented X3 - Psychiatric Psychiatric exam: Present: normal affect, normal mood - Skin Skin exam: Present: warm, dry, intact, normal color. Absent: rash ED Course Vital Signs 05/25/20 15:06 Temperature 98.5 F Pulse Rate 81 Respiratory 18 Rate Blood Pressure 140/94 O2 Sat by Pulse 100 Oximetry ED Medical Decision Making - Medical Decision Making 25-year-old -[place] female presents to the emergency room stating that she has been having intermittent sore throat since February. Patient states that she was seen at the urgent care 3 times and was prescribed Bactrim next day doxycycline and then Bactrim. Patient had clindamycin in March. Patient still reports intermittent sore throat. She was referred to wearing apparel shaker but no one was accepting her insurance. Patient denies any fever chills no nausea no vomiting no chest pain no runny nose no nasal congestion. Patient was sitting here in the emergency room she started to have allergic reaction to unknown cause. Patient started to whelps on her forearm and lower legs. Patient states she does have allergic reaction to multiple environmental triggers. Patient denies any shortness of breath no chest pain no feeling of throat closing no eye swelling. Critical care attestation.: If time is entered above; I have spent that time in minutes in the direct care of this critically ill patient, excluding procedure time. ED Disposition Clinical Impression: Sore throat (viral), Hives Disposition: - TO HOME OR SELFCARE Is pt being admited?: No Does the pt Need Aspirin: No Condition: Stable Instructions: Viral Respiratory Infection, [id number], Sore Throat, [id number] Additional Instructions: Strep test is negative. I recommend following up with wearing apparel shaker. Patient is to follow-up with her primary care provider. Tylenol or ibuprofen gargle with warm salt water. Prescriptions: predniSONE [Deltasone] 20 mg PO QDAY #5 tablet Cetirizine HCl [Zyrtec 10mg tab] 10 mg PO QDAY #15 tablet Referrals: CAIO CHAMBERS NP-C [Primary Care Provider] - 3-5 Days AMELIA GILLIAM MD [Staff Physician] - 3-5 Days Forms: Work/School Release Form(ED)
[2020-05-25] MEDS ORDERED: diphenhydrAMINE 25 MG CAP PO ONE (19:01)
[2020-05-25] MEDS ORDERED: predniSONE 20 MG TAB PO ONE (19:07)
[2020-05-25] MEDS ORDERED: predniSONE 20 MG TAB PO NR (20:00)
== END 2020-05-25 19:33 | disposition home or self-care (01) ==
LOC: ED 14:49
DX: J02.8 Acute pharyngitis due to other specified organisms (principal); B97.89 Other viral agents as the cause of diseases classified elsewhere; L50.9 Urticaria, unspecified; I10 Essential (primary) hypertension; J45.909 Unspecified asthma, uncomplicated; D64.9 Anemia, unspecified; F17.200 Nicotine dependence, unspecified, uncomplicated; Z79.899 Other long term (current) drug therapy; Z88.0 Allergy status to penicillin; Z98.890 Other specified postprocedural states
CPT/HCPCS: 87116; 87430; 99283; J7512